=== PATIENT | male | born 1995 | race African-American/Black ===

== ENCOUNTER 2021-04-17 09:21 | Emergency (ER) | payer SELFPAY ==
[~2021-04-17] VITALS: Ht 188 cm; Wt 100.0 kg
[2021-04-17] MEDS ORDERED: LORAZEPAM 2MG/ML CPJ IV STA (09:53)
[2021-04-17] MEDS ORDERED: HALOPERIDOL LACTATE 5MG/ML VIAL IM STA (09:53)
[2021-04-17 11:40] LABS: BASOPHILS % 0.2 % (0.0-2.0); EOSINOPHILS % 0.2 % (0.0-5.0); HEMATOCRIT. 36.3 % (42.0-52.0); HEMOGLOBIN. 12.1 g/dL (14.0-18.0); LYMPHOCYTES % 15.4 % (20.0-50.0); MEAN CORPUSCULAR HEMOGLOBIN 30.7 pg (28.0-32.0); MEAN CORPUSCULAR VOLUME 92.1 fL (80.0-94.0); MEAN PLATELET VOLUME 8.4 fl (7.4-10.4); NEUTROPHILS % 79.2 % (40.0-76.0); PLATELET 257 x1000/uL (130-400); RED BLOOD CELL COUNT 3.94 mill/uL (4.7-6.1); RED CELL DISTRIBUTION WIDTH 14.4 % (11.6-14.6)
[2021-04-17 11:47] LABS: CHLORIDE 108 mEq/L (98-107)
[2021-04-17 11:51] LABS: ETHANOL BLOOD < 10 mg/dL
[2021-04-17 14:15] VITALS: BP 125/72
== END 2021-04-17 15:07 | disposition home or self-care (01) ==
LOC: ER 09:21
DX: E16.2 Hypoglycemia, unspecified (principal)
CPT/HCPCS: 36415; 80053; 80320; 82962; 85025; 96372; 96374; 99283; J1630; J2060; G0480